=== PATIENT | female | born 1950 | race Two or more races ===

== ENCOUNTER 2025-04-30 15:40 | Inpatient (IN) | payer MEDICARE, MEDICAID ==
[~2025-04-30] VITALS: Ht 157.5 cm; Wt 62.2 kg
[2025-04-30] MEDS: NITROGLYCERIN 0.4 MG SL TAB SL ONE (15:45)
[2025-04-30] MEDS: ASPirin-EC 325mg tab PO ONE (15:45)
--- NOTE | 2025-04-30 15:58 | ED.PDOC ---
HPI Comments Initial Vitals BP: 145/71 HR: 61 RR: 17 O2 Sat: 95% Temp: 98F Past Medical history: DM, HTN, HLD, thyroid disease Past Surgical history: Pacemaker Medications: Eliquis, Losartan, Metoprolol, Metformin, Lipitor Social History: Denies smoking, ETOH, and drug use. Allergies: NKDA HPI: Poor Historian. REVIEW OF SYSTEMS: CONSTITUTIONAL: Denies acute: fever, diaphoresis, chills, generalized weakness. HEAD: Denies acute: headache, photophobia Eyes: Denies acute: Double vision, vision loss, eye pain, eye discharge. EARS: Denies acute: tinnitus, hearing loss, ear discharge, ear pain, THROAT: Denies acute: sore throat, swelling, difficulty swallowing , pain with swallowing, change in voice. NECK: Denies acute: neck pain, neck swelling, stiff neck. HEART: Denies acute : , palpitations, LUNGS: Denies acute: SOB, wheezing, cough, hemoptysis ABDOMEN: Denies acute: abdominal pain, Nausea, Vomiting, diarrhea, melena , hematemesis, hematochezia SKIN: Denies acute: rash, redness, lesions, itchiness. EXTREMITIES: Denies acute: calf pain, numbness, tingling, weakness, denies pain in extremity. Denies acute: Low back pain. Neuro: Denies acute: focal neurological deficit, motor or sensory focal neurological deficit, tremors, seizure like activity, confusion, dizziness, change in mental status, loss of bowel or bladder function, cauda equina like symptoms. : Denies acute: dysuria, hematuria, flank pain, increase in urinary frequency. PSYCH: Denies acute: hallucination, suicidal ideation, homicidal ideation. FEMALE: Denies acute: abnormal vaginal bleeding, foul odor, unusual discharge. PHYSICAL EXAM: General: ----[id number]----acute distress, awake and alert. Head: normocephalic, atraumatic. Neck: supple, trachea is midline, no swelling. Throat: Normal phonation. Eyes:, no erythema, no purulent discharge, no proptosis, no icterus. Heart: regular rate, regular rhythm, no significant murmur appreciated. Lungs: no apparent respiratory distress, Able to speak in full sentences. No wheezing, no rhonchi, no crackles. No stridors Clear to auscultation bilaterally. Abdomen: non tender to palpation, non distended, soft, no guarding, no rebound, + bowel sounds. Neuro: Awake, Alert, oriented to name, self, situation, follows commands GCS=15. Speech is normal. Skin: no petechia, no purpura, no cyanosis, non-pale, not jaundice. Lower extremities: --no - Pitting edema no deformity, no focal swelling, no calf TTP. Makes eye contact. moves all four extremities. Face: no apparent facial droop. Ambulating in the ED independently. ED COURSE: DISCLAIMER: This medical document was created using an electronic medical record system with voice recognition software and computerized dictation system. Although this document has been carefully reviewed, there might still be some phonetic and typographical errors. Occasional wrong-word or "sound-alike" substitutions may have occurred due to the inherent limitations of voice recognition software. These areas are purely typographical due to imperfections of the software programs and do not reflect any compromise in the patient's medical care. Please read the chart carefully and recognize, using context, where these substitutions have occurred. Chief Complaint: Chest Pain Time Seen by MD: 15:57 Reviewed Notes: Medications, Allergies Allergies: Coded Allergies: NO KNOWN ALLERGIES (Unverified , 04/30/25) Information Source: Patient Mode of Arrival: Ambulatory Was a procedure done? Was a procedure done?: No CP Differential Dx Differential Diagnosis: N/A Differential Diagnosis: Other (Ddx include but not limitied to gastritis, musculoskeletal pain, radiculopathy, atypical chest pain, dissection, aneurysm, ACS, unstable angina, hiatal hernia, GERD, anxiety, costochondritis, PE, pneumothroax, neoplasm, cardiac ischemia, drug abuse, anemia.) X-Ray, Labs, Meds, VS Vital Signs Date Time Temp Pulse Resp B/P (MAP) Pulse Ox O2 Delivery O2 Flow Rate FiO2 04/30/25 18:50 61 04/30/25 18:41 97.9 65 18 124/67 (86) 96 97.9 04/30/25 16:41 63 04/30/25 15:47 61 04/30/25 15:43 98.0 73 17 145/71 (95) 95 98.0 Lab Test 04/30/25 17:03 04/30/25 15:52 04/30/25 15:50 Range/Units Troponin I High Sensitivity 3 L 4 </=34 ng/L Urine Color Dark-yellow Yellow Urine Clarity Clear Clear Urine pH 5.5 5.0-9.0 Urine Specific [place] 1.023 1.001-1.035 Urine Protein Negative Negative Urine Ketones Negative Negative Urine Blood Negative Negative /uL Urine Nitrite Negative Negative Urine Bilirubin Negative Negative Urine Urobilinogen Normal Negative mg/dL Urine Leukocyte Esterase Trace Negative /uL Urine RBC 1 0 - 4 /hpf Urine Microscopic WBC 5 0-5 /HPF Urine Squamous Epithelial Cells Few <5 /hpf Urine Bacteria None seen None Seen /hpf Urine Glucose Normal Normal mg/dL White Blood Count 7.8 4.4-10.8 10^3/uL Red Blood Count 4.63 4.0-5.20 10^6/uL Hemoglobin 13.1 12.2-16.2 g/dL Hematocrit 38.8 36.0-46.0 % Mean Corpuscular Volume 83.8 80.0-100.0 fL Mean Corpuscular Hemoglobin 28.3 28.0-32.0 pg Mean Corpuscular Hemoglobin Concent 33.8 32.0-36.0 g/dL Red Cell Distribution Width 13.4 11.8-14.3 % Platelet Count 246 140-450 10^3/uL Mean Platelet Volume 7.9 6.9-10.8 fL Neutrophils (%) (Auto) 44.5 37.0-80.0 % Lymphocytes (%) (Auto) 46.5 10.0-50.0 % Monocytes (%) (Auto) 6.3 0.0-12.0 % Eosinophils (%) (Auto) 2.1 0.0-7.0 % Basophils (%) (Auto) 0.6 0.0-2.0 % Neutrophils # (Auto) 3.5 1.6-8.6 10 ^3/uL Lymphocytes # (Auto) 3.6 0.4-5.4 10 ^3/uL Monocytes # (Auto) 0.5 0-1.3 10 ^3/uL Eosinophils # (Auto) 0.2 0-0.8 10 ^3/uL Basophils # (Auto) 0 0-0.2 10 ^3/uL Nucleated Red Blood Cells 0.1 % Sodium Level 145 136-145 mmol/L Potassium Level 3.9 3.5-5.1 mmol/L Chloride Level 106 98-107 mmol/L Carbon Dioxide Level 31 20-31 mmol/L Anion Gap 8 5-15 Blood Urea Nitrogen 21 9-23 mg/dL Creatinine 0.85 0.550-1.02 mg/dL Glomerular Filtration Rate Calc 73 >90 mL/min BUN/Creatinine Ratio 24.7 H 10.0-20.0 Serum Glucose 162 H 74-106 mg/dL Calcium Level 10.6 H 8.7-10.4 mg/dL Total Bilirubin 0.5 0.2-1.0 mg/dL Aspartate Amino Transferase (AST) 33 <34 U/L Alanine Aminotransferase (ALT) 38 7-40 U/L Alkaline Phosphatase 102 46-116 U/L B-Type Natriuretic Peptide 83.68 0-100 pg/mL Total Protein 6.9 5.7-8.2 g/dL Albumin 4.3 3.2-4.8 g/dL [place] [id number] Ph: [phone] DIAGNOSTIC IMAGING Diagnostic Imaging Report : [id number] Signed PATIENT: MATTHEW JONES ACCT: [id number] UNIT: [id number] : 1950 LOC: ER ROOM / BED: / AGE / SEX: 74 / F ADM STATUS: REG ER SERVICE 1545 ORDERING PHYSICIAN: TARI COTTER DO PROCEDURE(s): CXRP - CHEST PORTABLE REASON: cp ORDER NUMBER(s): [id number], ACCESSION NUMBER(s): [id number] EXAM: XY CHEST PORTABLE HISTORY: cp COMPARISON: None TECHNIQUE: PA upright view of the chest was performed. FINDINGS: No pneumothorax, consolidative infiltrates, or pulmonary edema. The heart is not enlarged. There is a left chest pacemaker. There is oxyt-zs-thraihxj thoracic degenerative disc disease. There is slight thoracic dextroscoliosis. IMPRESSION: No acute intrathoracic process. ATED BY: JESSICA AGUILAR MD DICTATED DATE/TIME: 04/30/251622 SIGNED BY: JESSICA AGUILAR MD SIGNED DATE/TIME: 04/30/251622 CC: Time of 1ST Reevaluation: 16:57 Reevaluation 1ST: Unchanged Patient Education/Counseling: Diagnosis, Treatment Family Education/Counseling: Diagnosis, Treatment Comments EKGs T-wave inversion slight depressions in lead one and aVL. Patient presented with the above HPI.--cardia----workup was initiated. patient was found with the above mentioned diagnosis. the following medications were ordered: please refer to order lists of meds and tests obtained by myself Dr. Cotter. Patient ED course and VS have been stabilized. Patient has been reassessed in the ED and remained in a stable condition. Pertinent incidental findings were discussed with the patient and/or family. Patient/family voices understanding and is agreeable with plan. Patient has been observed in the ED adequate length of time to insure improvement/stability. Escalation of care considered: Consideration of escalation to observation or admission Patient was ADMITTED to the medicine team for further evaluation and treatment of their presentation. All the reports of any imaging studies that were ordered by myself were reviewed by myself. Departure 1 Departure Time of Disposition: 16:00 Impression: Primary Impression: Chest pain Additional Impression: Abnormal EKG Disposition: ADMITTED INPATIENT Admit to: [facility] Condition: Guarded Discharged With: Self Critical Care Note Critical Care Time?: No Heart Score Heart Score: Heart Score Response (Comments) Value History Highly Suspicious [address]-Deviation 2 Age >65 2 Risk Factors >3 or Hx ASHD 2 Troponin Normal limit 0 Total 8 I personally scribed for TARI COTTER DO ([email or web address]) on 04/30/25 at 15:58. Electronically submitted by Gagan Mcclellan ([email or web address]). I personally scribed for TARI COTTER DO ([email or web address]) on 04/30/25 at 16:48. Electronically submitted by Gagan Mcclellan ([email or web address]). I personally scribed for TARI COTTER DO ([email or web address]) on 04/30/25 at 17:10. Electronically submitted by Gagan Mcclellan ([email or web address]). TARI COTTER DO Apr 30, 2025 15:58
[2025-04-30 16:09] LABS: Basophils # (auto) 0 10 ^3/uL (0-0.2); Basophils % (auto) 0.6 % (0.0-2.0); Eosinophils # (auto) 0.2 10 ^3/uL (0-0.8); Eosinophils % (auto) 2.1 % (0.0-7.0); Hematocrit 38.8 % (36.0-46.0); Hemoglobin 13.1 g/dL (12.2-16.2); Lymphocytes # (auto) 3.6 10 ^3/uL (0.4-5.4); Lymphocytes % (auto) 46.5 % (10.0-50.0); Mean Corpuscular Hemoglobin 28.3 pg (28.0-32.0); Mean Corpuscular Hgb Conc. 33.8 g/dL (32.0-36.0); Mean Corpuscular Volume 83.8 fL (80.0-100.0); Monocytes # (auto) 0.5 10 ^3/uL (0-1.3); Monocytes % (auto) 6.3 % (0.0-12.0); Neutrophils # (auto) 3.5 10 ^3/uL (1.6-8.6); Neutrophils % (auto) 44.5 % (37.0-80.0); Nucleated Red Blood Cells % 0.1 %; Platelet Count (auto) 246 10^3/uL (140-450); Red Blood Cells 4.63 10^6/uL (4.0-5.20); Red Cell Distribution Width 13.4 % (11.8-14.3); White Blood Cell 7.8 10^3/uL (4.4-10.8)
[2025-04-30 16:20] LABS: Urine Bacteria None Seen /hpf (None Seen)
[2025-04-30 16:26] LABS: Alanine Aminotransferase 38 U/L (7-40); Albumin 4.3 g/dL (3.2-4.8); Alkaline Phosphatase 102 U/L (46-116); Anion Gap 8 (5-15); Aspartate Aminotransferase 33 U/L (<34); BUN/Creatinine Ratio 24.7 (10.0-20.0); Bilirubin, Total 0.5 mg/dL (0.2-1.0); Blood Urea Nitrogen 21 mg/dL (9-23); Calcium 10.6 mg/dL (8.7-10.4); Carbon Dioxide 31 mmol/L (20-31); Chloride 106 mmol/L (98-107); Glucose 162 mg/dL (74-106); Potassium 3.9 mmol/L (3.5-5.1); Sodium 145 mmol/L (136-145); Total Protein 6.9 g/dL (5.7-8.2)
--- NOTE | 2025-04-30 16:26 | DVH ---
EXAM: XY CHEST PORTABLE HISTORY: cp COMPARISON: None TECHNIQUE: PA upright view of the chest was performed. FINDINGS: No pneumothorax, consolidative infiltrates, or pulmonary edema. The heart is not enlarged. There is a left chest pacemaker. There is djwa-mi-jowzkuys thoracic degenerative disc disease. There is slight thoracic dextroscoliosis. IMPRESSION: No acute intrathoracic process.
[2025-04-30 16:34] LABS: Urine Blood Negative /uL (Negative); Urine Clarity Clear (Clear); Urine Color Dark-Yellow (Yellow); Urine Protein, UAD Negative (Negative); Urine Specific Gravity 1.023 (1.001-1.035); Urine Squamous Epithelial Cell FEW /hpf (<5); Urine Urobilinogen Normal (Negative); Urine WBC 5 /HPF (0-5); Urine pH 5.5 (5.0-9.0)
[2025-04-30] MEDS ORDERED: ONDANSETRON HCL 4 MG/2 ML VIAL IV PRN (19:00)
[2025-04-30] MEDS: SODIUM CHLORIDE 0.9% 1,000 ML IV SCH (19:00)
[2025-04-30] MEDS ORDERED: NITROGLYCERIN 0.4 MG SL TAB SL PRN (19:00)
[2025-04-30] MEDS ORDERED: MORPHINE SULFATE INJ 2 MG/ml SYRG IV PRN (19:00)
[2025-04-30] MEDS: PANTOPRAZOLE 40 MG/10 ML VIAL INJ IV ONE (19:00)
[2025-04-30] MEDS: PIPERACILLIN-TAZOB 3.375GM 100 ML IV ONE (19:00)
[2025-05-01] VITALS (9 sets, daily range): BP systolic 117–139; BP diastolic 70–84; PULSE 60–73; RESP 16–20; TEMP 96.8–98.1; O2SAT 93–97
[2025-05-01] MEDS: PIPERACILLIN-TAZOB 3.375GM 100 ML IV SCH (02:55)
[2025-05-01 05:57] LABS: Basophils # (auto) 0 10 ^3/uL (0-0.2); Basophils % (auto) 0.6 % (0.0-2.0); Eosinophils # (auto) 0.2 10 ^3/uL (0-0.8); Eosinophils % (auto) 2.2 % (0.0-7.0); Hematocrit 38.7 % (36.0-46.0); Lymphocytes # (auto) 3.5 10 ^3/uL (0.4-5.4); Lymphocytes % (auto) 44.3 % (10.0-50.0); Mean Corpuscular Hgb Conc. 33.7 g/dL (32.0-36.0); Monocytes # (auto) 0.6 10 ^3/uL (0-1.3); Monocytes % (auto) 8.3 % (0.0-12.0); Neutrophils # (auto) 3.5 10 ^3/uL (1.6-8.6); Neutrophils % (auto) 44.6 % (37.0-80.0); Nucleated Red Blood Cells % 0.2 %; Platelet Count (auto) 230 10^3/uL (140-450); Red Blood Cells 4.67 10^6/uL (4.0-5.20); White Blood Cell 7.8 10^3/uL (4.4-10.8)
[2025-05-01 06:25] LABS: Alanine Aminotransferase 34 U/L (7-40); Alkaline Phosphatase 84 U/L (46-116); Anion Gap 8 (5-15); BUN/Creatinine Ratio 20.6 (10.0-20.0); Blood Urea Nitrogen 14 mg/dL (9-23); Calcium 9.2 mg/dL (8.7-10.4); Carbon Dioxide 28 mmol/L (20-31); Chloride 105 mmol/L (98-107); Potassium 3.8 mmol/L (3.5-5.1); Sodium 141 mmol/L (136-145); Total Protein 6.5 g/dL (5.7-8.2)
[2025-05-01 06:26] LABS: Aspartate Aminotransferase 27 U/L (<34); Glucose 116 mg/dL (74-106)
[2025-05-01 06:27] LABS: Bilirubin, Total 0.7 mg/dL (0.2-1.0)
[2025-05-01] MEDS ORDERED: DEXTROSE (50%) 50ML SYRG IV PRN (08:00)
[2025-05-01 08:20] LABS: Amphetamine Screen, Urine Neg (NEGATIVE); Barbiturate Scree,Urine Neg (NEGATIVE); Benzodiazephine Screen, Urine Neg (NEGATIVE); Cannabinoid Screen, Urine Neg (NEGATIVE); Cocaine Screen, Urine Neg (NEGATIVE); Opiate Scree,Urine Neg (NEGATIVE); Phencyclidine Screen, Urine Neg (NEGATIVE)
[2025-05-01] MEDS: PANTOPRAZOLE 40 MG/10 ML VIAL INJ IV SCH (09:28)
[2025-05-01] MEDS: cefTRIAXone 1GM/50ML D5W 50 ML IV SCH (09:28)
[2025-05-01] MEDS ORDERED: ENOXAPARIN SOD 40 MG/0.4 ML SYRINGE SC SCH (10:00)
[2025-05-01] MEDS ORDERED: NICOTINE 21MG/24 HR TOPICAL PATCH TD SCH (10:00)
[2025-05-01] MEDS ORDERED: METF-370 PO (10:31)
[2025-05-01] MEDS ORDERED: LOSA-534 PO (10:31)
[2025-05-01] MEDS ORDERED: METO25TA5 PO (10:31)
[2025-05-01] MEDS ORDERED: APIX5TAB PO (10:31)
[2025-05-01] MEDS ORDERED: LEVO25TA6 PO (10:31)
[2025-05-01] MEDS ORDERED: ATOR40TA52 PO (10:31)
--- NOTE | 2025-05-01 11:16 | DVHPN2 ---
Subjective c/o lt sided chest pain Changes from previous H/P or p: No Changes Objective Vitals Vital Signs Date Time Temp Pulse Resp B/P (MAP) Pulse Ox O2 Delivery O2 Flow Rate FiO2 05/01/25 08:16 97.5 62 17 136/71 (92) 95 97.5 05/01/25 00:14 Room Air* 0 21 Intake/Output Intake and Output 05/01/25 07:00 Intake Total 0 ml Balance 0 ml Intake Oral 0 ml # Voids 1 General Appearance: Alert, Oriented X3, Cooperative, No acute distress Lungs: Clear to auscultation, Normal air movement Cardiovascular: Regular rate, Normal S1, Normal S2 Abdomen: Normal bowel sounds, Soft, No tenderness Musculoskeletal: Normal sensory function, Normal motor function Extremities: No edema Psych/Mental Status: Mental status NL, Mood NL Medications Current Medications Medications Dose Ordered Sig/Elyssa Route Start Time Stop Time Status Last Admin Dose Admin Ceftriaxone Sodium 50 ml @ 100 mls/hr DAILY@09 IV 05/01/25 08:03 05/01/25 09:28 100 MLS/HR Levothyroxine Sodium 25 mcg QAM@0600 PO 05/02/25 06:00 UNV Atorvastatin Calcium 40 mg HS PO 05/01/25 22:00 UNV Metoprolol Tartrate 25 mg BID PO 05/01/25 22:00 UNV Apixaban 5 mg BID PO 05/01/25 22:00 UNV Laboratory Results Laboratory Tests 05/01/25 04:53 Chemistry Test 04/30/25 15:50 05/01/25 04:53 Albumin 4.3 g/dL (3.2-4.8) 4.0 g/dL (3.2-4.8) Calcium Level 10.6 mg/dL (8.7-10.4) H 9.2 mg/dL (8.7-10.4) Total Protein 6.9 g/dL (5.7-8.2) 6.5 g/dL (5.7-8.2) Magnesium Level 2.0 mg/dL (1.6-2.6) Lipid panel Test 05/01/25 04:53 Cholesterol Level 139 mg/dL (< 200) HDL Cholesterol 34 mg/dL (40-59) L Triglycerides Level 156 mg/dL (< 150) H Cardiac Markers Test 04/30/25 15:50 B-Type Natriuretic Peptide 83.68 pg/mL (0-100) LFT Test 04/30/25 15:50 05/01/25 04:53 Alanine Aminotransferase (ALT) 38 U/L (7-40) 34 U/L (7-40) Alkaline Phosphatase 102 U/L (46-116) 84 U/L (46-116) Aspartate Amino Transferase (AST) 33 U/L (<34) 27 U/L (<34) Total Bilirubin 0.5 mg/dL (0.2-1.0) 0.7 mg/dL (0.2-1.0) HgA1c, TSH Test 05/01/25 04:53 Hemoglobin A1c 6.5 % A1C (<5.7) H Thyroid Stimulating Hormone (TSH) 3.82 uIU/mL (0.55-4.78) Urinalysis Test 04/30/25 15:52 Urine Color Dark-yellow (Yellow) Urine Clarity Clear (Clear) Urine pH 5.5 (5.0-9.0) Urine Specific [place] 1.023 (1.001-1.035) Urine Protein Negative (Negative) Urine Ketones Negative (Negative) Urine Blood Negative /uL (Negative) Urine Nitrite Negative (Negative) Urine Bilirubin Negative (Negative) Urine Urobilinogen Normal mg/dL (Negative) Urine Leukocyte Esterase Trace /uL (Negative) Urine RBC 1 /hpf (0 - 4) Urine Microscopic WBC 5 /HPF (0-5) Urine Squamous Epithelial Cells Few /hpf (<5) Urine Bacteria None seen /hpf (None Seen) Urine Glucose Normal mg/dL (Normal) Assessment/Plan Assessment/Plan left sided chest pain- clinically chest wall pain/given risk factors get cardiac opinion/echo pending paroxysmal atrail fibrillation rate control/antioagulation htn hypothyroidism dm well controlled ambulatory status Plan discussed with: Patient, Daughter My Orders Orders - STACY AYALA MD Procedure Category Date Status Time Levothyroxine Tablet PHA 05/01/25 Logged (Synthroid Tablet) 11:15 Levothyroxine Tablet PHA 05/02/25 Logged (Synthroid Tablet) 06:00 Atorvastatin (Lipitor) PHA 05/01/25 Logged 11:15 Atorvastatin (Lipitor) PHA 05/01/25 Logged 22:00 Metoprolol Tartrate PHA 05/01/25 Logged Tablet (Lopressor Ta 22:00 Apixaban (Eliquis) PHA 05/01/25 Logged 22:00 * Cardiology Consult CONS 05/01/25 Verified 11:11 Date of Service: May 01, 2025 Billing Provider: STACY AYALA MD Common Visit Codes: [id number] INP/OBS CARE(MOD) STACY AYALA MD May 01, 2025 11:16
[2025-05-01] MEDS ORDERED: ACCU-CHEK COMFORT CURVE STRIP VI SCH (11:30)
[2025-05-01] MEDS ORDERED: InsuLIN REG 1unit/0.01ml Soln (100units/ml) SC SCH (11:30)
[2025-05-01] MEDS: LEVOTHYROXINE SODIUM 25 MCG TAB PO ONE (13:00)
[2025-05-01] MEDS: ATORVASTATIN 20 MG TAB PO ONE (13:00)
--- NOTE | 2025-05-01 18:26 | DVHINCON2 ---
Date of service: May 01, 2025 Referring Physician Cristopher Reason for Consultation Chest pain History of Present Illness This is a 74 year old female with a PMH of DM, HTN, HLD, thyroid disease who presented to the ED with complaints of chest pain. Pain does not radiate. Denies any associated symptoms. EKGs shows T-wave inversion slight depressions in lead one and aVL. Chest x-ray showed NAD. CBC and CMP were unremarkable. Troponin negative x3. Patient was admitted to the hospital. I am asked to consult on this patient. Allergies: Coded Allergies: NO KNOWN ALLERGIES (Unverified , 04/30/25) Home Meds Reported Medications Losartan Potassium (Losartan Potassium) 50 Mg Tab, 50 MG PO DAILY for 30 Days, MG 05/01/25 Atorvastatin Calcium (ATORVASTATIN CALCIUM) 40 Mg Tab, 1 TAB PO QPM, #90 TAB 3 Refills 05/01/25 Metoprolol Tartrate (Metoprolol Tartrate) 25 Mg Tab, 25 MG PO BID for 30 Days, MG 05/01/25 Metformin Hydrochloride (Metformin Hcl) 500 Mg Tab, 500 MG PO IBID for 30 Days, MG 05/01/25 Levothyroxine Sodium (Levothyroxine Sodium) 25 Mcg Tab, 25 MCG PO QAM, MCG 05/01/25 Apixaban Base (ELIQUIS) 5 Mg Tab, 5 MG PO BID, TAB 05/01/25 Current Medications Current Medications Medications (Trade) Dose Ordered Sig/Elyssa Route PRN Reason Start Time Stop Time Status Last Admin Piperacillin Sod/ Tazobactam Sod 100 ml @ 25 mls/hr Q8H IV 05/01/25 04:00 05/01/25 11:06 DC Sodium Chloride 1,000 ml @ 120 mls/hr Q8H20M IV 04/30/25 19:00 05/01/25 11:06 DC 05/01/25 09:28 Ondansetron HCl (Zofran) 4 mg Q4HP PRN IV NAUSEA / VOMITING 04/30/25 19:00 05/01/25 11:06 DC Morphine Sulfate 2 mg Q4HPRN PRN IV SEVERE PAIN (7-10 PAIN SCALE) 04/30/25 19:00 05/01/25 11:06 DC Nitroglycerin (Ntrostat Sublingual) 0.4 mg Q5MINP PRN SL FOR CHEST PAIN 04/30/25:00 05/01/25 11:06 DC Pantoprazole Sodium (Protonix) 40 mg DAILY IV 05/01/25 10:00 05/01/25 11:06 DC 05/01/25 09:28 Nicotine (Nicoderm 21MG/ 24HR) 1 patch DAILY TD 05/01/25 10:00 05/01/25 11:06 DC Ceftriaxone Sodium 50 ml @ 100 mls/hr DAILY@09 IV 05/01/25 08:03 05/01/25 09:28 Diagnostic Test (Pha) (Accu-Chek Comfort Curve T) 1 strip ACHS 05/01/25 11:30 05/01/25 11:06 DC Insulin Human Regular (InsuLIN R) ACHS SC 05/01/25 11:30 05/01/25 11:06 DC Dextrose 50 ml UD PRN IV Blood Sugar LESS THAN 60 05/01/25 08:00 05/01/25 11:06 DC Enoxaparin Sodium (Lovenox) 40 mg DAILY SC 05/01/25 10:00 05/01/25 11:06 DC Levothyroxine Sodium (Synthroid Tablet) 25 mcg QAM@0600 PO 05/02/25 06:00 Atorvastatin Calcium (Lipitor) 40 mg HS PO 05/01/25 22:00 Metoprolol Tartrate (Lopressor Tablet) 25 mg BID PO 05/01/25 22:00 Apixaban (Eliquis) 5 mg BID PO 05/01/25 22:00 Review of Systems CONSTITUTIONAL: Denies acute: fever, diaphoresis, chills, generalized weakness. HEAD:Denies acute: headache, photophobia Eyes:Denies acute: Double vision, vision loss, eye pain, eye discharge. EARS: Denies acute: tinnitus, hearing loss, ear discharge, ear pain, THROAT: Denies acute: sore throat, swelling, difficulty swallowing , pain with swallowing, change in voice. NECK:Denies acute: neck pain, neck swelling, stiff neck. HEART:Denies acute : , palpitations, LUNGS:Denies acute: SOB, wheezing, cough, hemoptysis ABDOMEN:Denies acute: abdominal pain, Nausea, Vomiting, diarrhea, melena , hematemesis, hematochezia SKIN:Denies acute: rash, redness, lesions, itchiness. EXTREMITIES:Denies acute: calf pain, numbness, tingling, weakness, denies pain in extremity.Denies acute: Low back pain. Neuro:Denies acute: focal neurological deficit, motor or sensory focal neurological deficit, tremors, seizure like activity, confusion, dizziness, change in mental status, loss of bowel or bladder function, cauda equina like symptoms. : Denies acute: dysuria, hematuria, flank pain, increase in urinary frequency. PSYCH: Denies acute: hallucination, suicidal ideation, homicidal ideation. FEMALE: Denies acute: abnormal vaginal bleeding, foul odor, unusual discharge. Vital Signs Vital Signs Date Time Temp Pulse Resp B/P (MAP) Pulse Ox O2 Delivery O2 Flow Rate FiO2 05/01/25 13:00 97.7 61 18 129/77 (94) 96 97.7 05/01/25 08:00 Room Air* 0 21 Physical Exam GENERAL: Alert and oriented x 3. No acute distress. EYES: PERRL, EOMI. Anicteric. HENT: Moist mucous membranes. LUNGS: Clear to auscultation bilaterally. CARDIOVASCULAR: Regular rate and rhythm. ABDOMEN: Soft, non-tender and non-distended. EXTREMITIES: No edema. NEUROLOGIC: No focal neurological deficits. SKIN: Warm, dry. Labs/Diagnostic Data Labs Test 05/01/25 04:53 04/30/25 19:00 04/30/25 15:52 04/30/25 15:50 Range/Units White Blood Count 7.8 4.4-10.8 10^3/uL Red Blood Count 4.67 4.0-5.20 10^6/uL Hemoglobin 13.0 12.2-16.2 g/dL Hematocrit 38.7 36.0-46.0 % Mean Corpuscular Volume 83.0 80.0-100.0 fL Mean Corpuscular Hemoglobin 28.0 28.0-32.0 pg Mean Corpuscular Hemoglobin Concent 33.7 32.0-36.0 g/dL Red Cell Distribution Width 13.0 11.8-14.3 % Platelet Count 230 140-450 10^3/uL Mean Platelet Volume 8.2 6.9-10.8 fL Neutrophils (%) (Auto) 44.6 37.0-80.0 % Lymphocytes (%) (Auto) 44.3 10.0-50.0 % Monocytes (%) (Auto) 8.3 0.0-12.0 % Eosinophils (%) (Auto) 2.2 0.0-7.0 % Basophils (%) (Auto) 0.6 0.0-2.0 % Neutrophils # (Auto) 3.5 1.6-8.6 10 ^3/uL Lymphocytes # (Auto) 3.5 0.4-5.4 10 ^3/uL Monocytes # (Auto) 0.6 0-1.3 10 ^3/uL Eosinophils # (Auto) 0.2 0-0.8 10 ^3/uL Basophils # (Auto) 0 0-0.2 10 ^3/uL Nucleated Red Blood Cells 0.2 % Sodium Level 141 136-145 mmol/L Potassium Level 3.8 3.5-5.1 mmol/L Chloride Level 105 98-107 mmol/L Carbon Dioxide Level 28 20-31 mmol/L Anion Gap 8 5-15 Blood Urea Nitrogen 14 9-23 mg/dL Creatinine 0.68 0.550-1.02 mg/dL Glomerular Filtration Rate Calc 92 >90 mL/min BUN/Creatinine Ratio 20.6 H 10.0-20.0 Serum Glucose 116 H 74-106 mg/dL Hemoglobin A1c 6.5 H <5.7 % A1C Calcium Level 9.2 8.7-10.4 mg/dL Magnesium Level 2.0 1.6-2.6 mg/dL Total Bilirubin 0.7 0.2-1.0 mg/dL Aspartate Amino Transferase (AST) 27 <34 U/L Alanine Aminotransferase (ALT) 34 7-40 U/L Alkaline Phosphatase 84 46-116 U/L Total Protein 6.5 5.7-8.2 g/dL Albumin 4.0 3.2-4.8 g/dL Triglycerides Level 156 H < 150 mg/dL Cholesterol Level 139 < 200 mg/dL LDL Cholesterol 86 < 100 mg/dL HDL Cholesterol 34 L 40-59 mg/dL Thyroid Stimulating Hormone (TSH) 3.82 0.55-4.78 uIU/mL Free Thyroxine (T4) Calculated 0.94 0.89-1.76 ng/dL Troponin I High Sensitivity 4 </=34 ng/L Urine Color Dark-yellow Yellow Urine Clarity Clear Clear Urine pH 5.5 5.0-9.0 Urine Specific [place] 1.023 1.001-1.035 Urine Protein Negative Negative Urine Ketones Negative Negative Urine Blood Negative Negative /uL Urine Nitrite Negative Negative Urine Bilirubin Negative Negative Urine Urobilinogen Normal Negative mg/dL Urine Leukocyte Esterase Trace Negative /uL Urine RBC 1 0 - 4 /hpf Urine Microscopic WBC 5 0-5 /HPF Urine Squamous Epithelial Cells Few <5 /hpf Urine Bacteria None seen None Seen /hpf Urine Glucose Normal Normal mg/dL Urine Opiates Screen Neg NEGATIVE Urine Fentanyl Screen Neg NEGATIVE Urine Barbiturates Screen Neg NEGATIVE Urine Phencyclidine Screen Neg NEGATIVE Urine Amphetamines Screen Neg NEGATIVE Urine Benzodiazepines Screen Neg NEGATIVE Urine Cocaine Screen Neg NEGATIVE Urine Cannabinoids Screen Neg NEGATIVE B-Type Natriuretic Peptide 83.68 0-100 pg/mL Assessment Left sided chest pain. Paroxysmal atrial fibrillation. HTN. Hypothyroidism. DM. Plan/Recommendation I agree with your ongoing assessment and care of plan. Echocardiogram. Eliquis. Lipitor, Metoprolol. IV antibiotics as ordered. Additional plan as per the hospital course. A total of 45 minutes was spent reviewing the patient record, examining the patient, making a diagnostic and therapeutic plan, discussing this plan with medical personnel, following up on diagnostic studies and following the patient for clinical stability excluding any and all procedures. At least 50% of this time was spent in direct, [id number] contact. Plan discussed with: Patient BOB العراقي MD May 01, 2025 17:29
--- NOTE | 2025-05-01 19:15 | ECG ---
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
--- NOTE | 2025-05-01 19:31 | DVHSR ---
APPROVED REPORT EXAM: Two-dimensional and M-mode echocardiogram with Doppler and color Doppler. Blood Pressure: 136/71 mmHg INDICATION Chest Pain Surgery/Intervention Pacemaker: RISK FACTORS Height: 5'2, Weight: 160 DIMENSIONS LVDd4.2 (3.8-5.7cm)LA (2D)4.0 (1.9-4.0cm)Aortic Root3.6 (2.0-3.7cm) LVDs2.7 (2.5-4.0cm)LA (MM) (1.9-4.0cm)Aortic Cusp Exc1.8 (1.5-2.0cm) EF (%) 65.0 (55-70%)Rt. Atrium3.3 (1.9-4.0cm)Asc. Aorta cm IVSd1.4 (0.7-1.1cm)RV (D)3.7 (1.8-2.4cm) PWd1.3 (0.7-1.1cm) Mitral Valve MitralMitral Stenosis E wave0.84m/sMV Mean GR.mmHg A wave1.08m/sMV Peak GR.85mmHg E/A ratio0.82D MVAcm2 DECEL [id number] 1/2 Timems Aortic Valve Aortic ValveAortic Stenosis V11.61m/Cira Mean GR.6mmHg V21.52m/Cira Peak GR.9mmHg LVOT Diameter2.0 (1.8-2.4cm)Doppler AVA3.33cm2 Pulmonic Valve V20.98m/s Tricuspid Valve TR Velocity2.49m/s [id number] Other Information Quality : Technically LimitedRhythm : Technically limited study due to body habitus.patient position. Conclusion LVEF >70%, mild LVH RV function normal, device lead noted Severe poserior annular calcification, there is 1.8cmx0.4cm echogenic structure near posterior annulu s, can not rule out vegetation. clinical correlation and ELICIA if indicated recommended
[2025-05-01] MEDS: METOPROLOL TARTRATE 25 MG TAB PO SCH (21:03)
[2025-05-01] MEDS: ATORVASTATIN 20 MG TAB PO SCH (21:04)
[2025-05-01] MEDS: APIXABAN 5 MG TAB PO SCH (21:05)
[2025-05-02] VITALS (8 sets, daily range): BP systolic 104–134; BP diastolic 61–75; PULSE 60–76; RESP 17–20; TEMP 97.6–98; O2SAT 93–97
[2025-05-02] MEDS: LEVOTHYROXINE SODIUM 25 MCG TAB PO SCH (05:16)
--- NOTE | 2025-05-02 06:33 | ECG ---
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
--- NOTE | 2025-05-02 12:21 | DVHPN2 ---
Subjective c/o lt sided chest wall pain/ Changes from previous H/P or p: No Changes Objective Vitals Vital Signs Date Time Temp Pulse Resp B/P (MAP) Pulse Ox O2 Delivery O2 Flow Rate FiO2 05/02/25 09:52 61 134/75 05/02/25 09:00 97.6 17 93 97.6 05/02/25 08:00 Room Air* 0 21 Intake/Output Intake and Output 05/02/25 07:00 Intake Total 828 ml Balance 828 ml Intake Oral 778 ml IV Total 50 ml # Voids 3 General Appearance: Alert, Oriented X3, Cooperative, No acute distress Lungs: Clear to auscultation, Normal air movement Cardiovascular: Regular rate, Normal S1, Normal S2 Abdomen: Normal bowel sounds, Soft, No tenderness Musculoskeletal: Normal sensory function, Normal motor function Extremities: No edema Psych/Mental Status: Mental status NL, Mood NL Medications Current Medications Medications Dose Ordered Sig/Elyssa Route Start Time Stop Time Status Last Admin Dose Admin Levothyroxine Sodium 25 mcg QAM@0600 PO 05/02/25 06:00 05/02/25 05:16 25 MCG Atorvastatin Calcium 40 mg HS PO 05/01/25 22:00 Metoprolol Tartrate 25 mg BID PO 05/01/25 22:00 05/02/25 09:52 25 MG Apixaban 5 mg BID PO 05/01/25 22:00 05/02/25 09:52 5 MG Laboratory Results Laboratory Tests 05/01/25 04:53 Urinalysis Test 04/30/25 15:52 Urine Color Dark-yellow (Yellow) Urine Clarity Clear (Clear) Urine pH 5.5 (5.0-9.0) Urine Specific [place] 1.023 (1.001-1.035) Urine Protein Negative (Negative) Urine Ketones Negative (Negative) Urine Blood Negative /uL (Negative) Urine Nitrite Negative (Negative) Urine Bilirubin Negative (Negative) Urine Urobilinogen Normal mg/dL (Negative) Urine Leukocyte Esterase Trace /uL (Negative) Urine RBC 1 /hpf (0 - 4) Urine Microscopic WBC 5 /HPF (0-5) Urine Squamous Epithelial Cells Few /hpf (<5) Urine Bacteria None seen /hpf (None Seen) Urine Glucose Normal mg/dL (Normal) Labs and/or images reviewed: Labs reviewed by me Assessment/Plan Assessment/Plan left sided chest pain- clinically chest wall pain/given risk factors get cardiac opinion/echo pending paroxysmal atrail fibrillation rate control/antioagulation echo shows ? density- await cardiology opinion on this - on eliquis//AFEBRILE clinically no signs of any infection/no recent dental procedures or joint injections/ua is clear/cxr is normal- follow clinical signs/symptoms htn hypothyroidism dm well controlled ambulatory status Plan discussed with: Patient, Daughter Date of Service: May 02, 2025 Billing Provider: STACY AYALA MD Common Visit Codes: [id number] INP/OBS CARE(MOD) STACY AYALA MD May 02, 2025 12:21
[2025-05-02] MEDS: cefTRIAXone 1GM/50ML D5W 50 ML IV ONE (13:30)
--- NOTE | 2025-05-02 17:38 | DVHPN2 ---
Consult Progress Note Subjective Patient reports: No new complaints Objective vital signs Vital Sign Date Time Temp Pulse Resp B/P (MAP) Pulse Ox O2 Delivery O2 Flow Rate FiO2 05/02/25 17:00 97.9 65 17 115/68 (84) 96 97.9 05/02/25 08:00 Room Air* 0 21 Total Intake and Output 05/01/25 05/01/25 05/02/25 15:00 23:00 07:00 Intake Total 168 ml 460 ml 200 ml Balance 168 ml 460 ml 200 ml medications Current Medications Medications Dose Ordered Sig/Elyssa Route Start Time Stop Time Status Last Admin Dose Admin Levothyroxine Sodium 25 mcg QAM@0600 PO 05/02/25 06:00 05/02/25 05:16 25 MCG Atorvastatin Calcium 40 mg HS PO 05/01/25 22:00 Metoprolol Tartrate 25 mg BID PO 05/01/25 22:00 05/02/25 09:52 25 MG Apixaban 5 mg BID PO 05/01/25 22:00 Hold 05/02/25 09:52 5 MG Ceftriaxone Sodium 50 ml @ 100 mls/hr DAILY@09 IV 05/03/25 09:00 Examination: GENERAL:Normal, CVS:Normal laboratory and microbiology Laboratory Tests 05/01/25 04:53 Test 05/01/25 04:53 Range/Units Serum Glucose 116 H 74-106 mg/dL Problem List/Assessment/Plan Problem List/Assessment/Plan Chest pain, to rule out ACS * Low suspicious for acute coronary syndrome based on negative troponins and nonspecific ECG findings. Awaiting left heart catheterization on 05/04/2025 for further evaluation * Tentative scheduled for left heart catheterization on 05/04/[address] Jonathan العراقي. Discussed plan with patient and daughter, and in agreement with the procedure Echogenic cardiac structure * Suspicious for annular calcification, ?Vegetation * Empiric antibiotics ceftriaxone * Dr. العراقي will review echocardiogram Hypertension * Continue with current antihypertensive medication Diabetes type 2 * Continue to monitor Hyperlipidemia * Continue with statins Plan discussed with: Patient, Daughter Dietary Evaluation Review Recommendations by RD: Dietary education by RD Comments: 1) Encourage optimal PO intake 2) Refer to outpatient RD/CDCES for weight management 3) Follow-up with cardiology 4) Continue to monitor I&O, labs, and skin integrity Expected Outcomes/Goals: 1) appetite and labs to improve 2) f/u in 3-5 days Date of Service: May 02, 2025 Billing Provider: BOB العراقي MD Common Visit Codes: CONSULT ONLY GIANCARLO WONG DIRECTOR OF ACADEMIC May 02, 2025 17:38
[2025-05-02 19:21] LABS: INR 0.98 (0.9-1.15); Partial Thromboplastin Time 26.5 SEC (24.5-34.5); Prothrombin Time 10.4 sec (9.3-11.8)
--- NOTE | 2025-05-02 23:20 | DVHPN2 ---
Progress Note - Dictate Date Seen: May 02, 2025 Medical Necessity Reason Pt with a Central, PICC or Fol: No Subjective Patient was seen and evaluated in follow up. No new complaints. Patient's daughter at bedside. Echocardiogram showed EF >70%. Patient is tentatively scheduled for left heart catheterization on 05/04/2025. Telemetry reviewed. vital signs Vital Sign Date Time Temp Pulse Resp B/P (MAP) Pulse Ox O2 Delivery O2 Flow Rate FiO2 05/02/25 13:00 97.6 65 18 118/74 (89) 94 97.6 05/02/25 08:00 Room Air* 0 21 Total Intake and Output 05/01/25 05/01/25 05/02/25 15:00 23:00 07:00 Intake Total 168 ml 460 ml 200 ml Balance 168 ml 460 ml 200 ml medications Current Medications Medications Dose Ordered Sig/Elyssa Route Start Time Stop Time Status Last Admin Dose Admin Levothyroxine Sodium 25 mcg QAM@0600 PO 05/02/25 06:00 05/02/25 05:16 25 MCG Atorvastatin Calcium 40 mg HS PO 05/01/25 22:00 Metoprolol Tartrate 25 mg BID PO 05/01/25 22:00 05/02/25 09:52 25 MG Apixaban 5 mg BID PO 05/01/25 22:00 05/02/25 09:52 5 MG Ceftriaxone Sodium 50 ml @ 100 mls/hr DAILY@09 IV 05/03/25 09:00 objective GENERAL: Alert and oriented x 3. No acute distress. EYES: PERRL, EOMI. Anicteric. HENT: Moist mucous membranes. LUNGS: Clear to auscultation bilaterally. CARDIOVASCULAR: Regular rate and rhythm. ABDOMEN: Soft, non-tender and non-distended. EXTREMITIES: No edema. NEUROLOGIC: No focal neurological deficits. SKIN: Warm, dry. laboratory and microbiology Laboratory Tests 05/01/25 04:53 Test 05/01/25 04:53 Range/Units Serum Glucose 116 H 74-106 mg/dL Problem List Chest pain, to rule out ACS. Echogenic cardiac structure. Hypertension. Diabetes type 2. Hyperlipidemia. Assessment/Plan Continued all current supportive medical care. Patient has been seen by Agata Matamoros NP on my behalf, her and I discussed the plan with the patient. Low suspicious for acute coronary syndrome based on negative troponins and nonspecific ECG findings. Tentatively scheduled for left heart catheterization on 05/04/2025 with me. Discussed plan with patient and daughter, and in agreement with the procedure. Suspicious for annular calcification, ?Vegetation. Empiric antibiotics ceftriaxone. Continue with current antihypertensive medication. Continue with statins. Additional plan as per the hospital course. Plan discussed with: Patient BOB العراقي MD May 02, 2025 15:24
[2025-05-03] VITALS (11 sets, daily range): BP systolic 97–125; BP diastolic 60–84; PULSE 63–74; RESP 17–20; TEMP 97–97.8; O2SAT 94–97
[2025-05-03] MEDS: cefTRIAXone 1GM/50ML D5W 50 ML IV SCH (09:40)
--- NOTE | 2025-05-03 10:29 | DVHPN2 ---
Consult Progress Note Subjective Patient reports: No new complaints Review of Systems: HEENT:Normal Objective vital signs Vital Sign Date Time Temp Pulse Resp B/P (MAP) Pulse Ox O2 Delivery O2 Flow Rate FiO2 05/03/25 09:40 69 124/79 05/03/25 09:00 97.0 20 97 97.0 05/02/25 20:00 Room Air* 0 21 Total Intake and Output 05/02/25 05/02/25 05/03/25 15:00 23:00 07:00 Intake Total 460 ml 100 ml Balance 460 ml 100 ml medications Current Medications Medications Dose Ordered Sig/Elyssa Route Start Time Stop Time Status Last Admin Dose Admin Levothyroxine Sodium 25 mcg QAM@0600 PO 05/02/25 06:00 05/03/25 05:17 25 MCG Atorvastatin Calcium 40 mg HS PO 05/01/25 22:00 05/02/25 21:14 40 MG Metoprolol Tartrate 25 mg BID PO 05/01/25 22:00 05/03/25 09:40 25 MG Apixaban 5 mg BID PO 05/01/25 22:00 Hold 05/02/25 09:52 5 MG Ceftriaxone Sodium 50 ml @ 100 mls/hr DAILY@09 IV 05/03/25 09:00 05/03/25 09:40 100 MLS/HR Examination: GENERAL:Normal, LUNGS:Normal, CVS:Normal laboratory and microbiology Laboratory Tests 05/01/25 04:53 Test 05/01/25 04:53 Range/Units Serum Glucose 116 H 74-106 mg/dL Problem List/Assessment/Plan Problem List/Assessment/Plan Chest pain, to rule out ACS * Low suspicious for acute coronary syndrome based on negative troponins and nonspecific ECG findings. Awaiting left heart catheterization on 05/04/2025 for further evaluation * Tentative scheduled for left heart catheterization on 05/04/[address] Jonathan العراقي. Discussed plan with patient and daughter, and in agreement with the procedure Echogenic cardiac structure * Suspicious for annular calcification, ?Vegetation * Empiric antibiotics ceftriaxone * Dr. العراقي will review echocardiogram Hypertension * Continue with current antihypertensive medication Diabetes type 2 * Continue to monitor Hyperlipidemia * Continue with statins Plan discussed with: Patient Dietary Evaluation Review Recommendations by RD: Dietary education by RD Comments: 1) Encourage optimal PO intake 2) Refer to outpatient RD/CDCES for weight management 3) Follow-up with cardiology 4) Continue to monitor I&O, labs, and skin integrity Expected Outcomes/Goals: 1) appetite and labs to improve 2) f/u in 3-5 days Date of Service: May 03, 2025 Billing Provider: BOB العراقي MD Common Visit Codes: CONSULT ONLY Consultation Codes: [id number] CONSULT <45MIN GIANCARLO WONG LOOP CUTTER May 03, 2025 10:29
--- NOTE | 2025-05-03 10:32 | DVHPN2 ---
Subjective c/o episodic disomfort on swallowing happened once/no weight loss/ Changes from previous H/P or p: No Changes Objective Vitals Vital Signs Date Time Temp Pulse Resp B/P (MAP) Pulse Ox O2 Delivery O2 Flow Rate FiO2 05/03/25 09:40 69 124/79 05/03/25 09:00 97.0 20 97 97.0 05/02/25 20:00 Room Air* 0 21 Intake/Output Intake and Output 05/03/25 07:00 Intake Total 560 ml Balance 560 ml Intake Oral 560 ml # Voids 6 General Appearance: Alert, Oriented X3, Cooperative, No acute distress Lungs: Clear to auscultation, Normal air movement Cardiovascular: Regular rate, Normal S1, Normal S2 Abdomen: Normal bowel sounds, Soft, No tenderness Musculoskeletal: Normal sensory function, Normal motor function Extremities: No edema Psych/Mental Status: Mental status NL, Mood NL Medications Current Medications Medications Dose Ordered Sig/Elyssa Route Start Time Stop Time Status Last Admin Dose Admin Levothyroxine Sodium 25 mcg QAM@0600 PO 05/02/25 06:00 05/03/25 05:17 25 MCG Atorvastatin Calcium 40 mg HS PO 05/01/25 22:00 05/02/25 21:14 40 MG Metoprolol Tartrate 25 mg BID PO 05/01/25 22:00 05/03/25 09:40 25 MG Apixaban 5 mg BID PO 05/01/25 22:00 Hold 05/02/25 09:52 5 MG Ceftriaxone Sodium 50 ml @ 100 mls/hr DAILY@09 IV 05/03/25 09:00 05/03/25 09:40 100 MLS/HR Laboratory Results Laboratory Tests 05/01/25 04:53 Coagulation Test 05/02/25 18:43 Prothrombin Time 10.4 sec (9.3-11.8) Prothrombin Time INR 0.98 (0.9-1.15) Activated Partial Thromboplast Time 26.5 SEC (24.5-34.5) Urinalysis Test 04/30/25 15:52 Urine Color Dark-yellow (Yellow) Urine Clarity Clear (Clear) Urine pH 5.5 (5.0-9.0) Urine Specific [place] 1.023 (1.001-1.035) Urine Protein Negative (Negative) Urine Ketones Negative (Negative) Urine Blood Negative /uL (Negative) Urine Nitrite Negative (Negative) Urine Bilirubin Negative (Negative) Urine Urobilinogen Normal mg/dL (Negative) Urine Leukocyte Esterase Trace /uL (Negative) Urine RBC 1 /hpf (0 - 4) Urine Microscopic WBC 5 /HPF (0-5) Urine Squamous Epithelial Cells Few /hpf (<5) Urine Bacteria None seen /hpf (None Seen) Urine Glucose Normal mg/dL (Normal) Labs and/or images reviewed: Labs reviewed by me, Image(s) reviewed by me Assessment/Plan Assessment/Plan left sided chest pain- clinically chest wall pain/given risk factors get cardiac opinion/echo reviwed/for angio on sunday per cardiology and they are debatimg on carmen paroxysmal atrail fibrillation rate control/anticoagulation echo shows ? density- await cardiology opinion on this - on eliquis//AFEBRILE clinically no signs of any infection/no recent dental procedures or joint injections/ua is clear/cxr is normal- follow clinical signs/symptoms- if no input/clerance from /his inpatient services director on this PLEASE DO REQUEST SECOND OPINION ON THIS BECAUSE EVEN IF NOT VEGETATION AND THROMBUS FROM ATRIAL FIBRILLATION QUESTIONS EFFICACY/COMPLINACE OF CURRENT ANTICOAGULANT htn hypothyroidism dm well controlled ambulatory status Plan discussed with: Patient, Other My Orders Orders - STACY AYALA MD Procedure Category Date Status Time Blood Culture JOSE ENRIQUE 05/02/25 In Process 12:17 Ceftriaxone 1gm/50ml PHA 05/03/25 In Process D5w (Rocephin) 09:00 * Cardiology Consult CONS 05/02/25 Transmitted 12:17 Date of Service: May 03, 2025 Billing Provider: STACY AYALA MD Common Visit Codes: [id number] INP/OBS CARE(HIGH) STACY AYALA MD May 03, 2025 10:32
--- NOTE | 2025-05-03 23:23 | DVHPN2 ---
Consult Progress Note Subjective Patient reports: No new complaints Review of Systems: HEENT:Normal Other Systems: Patient was seen and evluated in follow up. Patient is complaining of episodic discomfort while swallowing, only happned once. Prelim blood cultures are negative. Telemetry reviewed. Objective vital signs Vital Sign Date Time Temp Pulse Resp B/P (MAP) Pulse Ox O2 Delivery O2 Flow Rate FiO2 05/03/25 09:40 69 124/79 05/03/25 09:00 97.0 20 97 97.0 05/03/25 08:00 Room Air* 0 21 Total Intake and Output 05/02/25 05/02/25 05/03/25 15:00 23:00 07:00 Intake Total 460 ml 100 ml Balance 460 ml 100 ml medications Current Medications Medications Dose Ordered Sig/Elyssa Route Start Time Stop Time Status Last Admin Dose Admin Levothyroxine Sodium 25 mcg QAM@0600 PO 05/02/25 06:00 05/03/25 05:17 25 MCG Atorvastatin Calcium 40 mg HS PO 05/01/25 22:00 05/02/25 21:14 40 MG Metoprolol Tartrate 25 mg BID PO 05/01/25 22:00 05/03/25 09:40 25 MG Apixaban 5 mg BID PO 05/01/25 22:00 Hold 05/02/25 09:52 5 MG Ceftriaxone Sodium 50 ml @ 100 mls/hr DAILY@09 IV 05/03/25 09:00 05/03/25 09:40 100 MLS/HR Examination: GENERAL:Normal, HEENT:Normal, NECK:Normal, LUNGS:Normal, CVS:Normal, ABDOMEN:Normal, MSK:Normal laboratory and microbiology Laboratory Tests 05/01/25 04:53 Test 05/01/25 04:53 Range/Units Serum Glucose 116 H 74-106 mg/dL Problem List/Assessment/Plan Problem List/Assessment/Plan Problem List Chest pain, to rule out ACS. Echogenic cardiac structure. Hypertension. Diabetes type 2. Hyperlipidemia. Assessment/Plan Continued all current supportive medical care. Patient has been seen by Agata Matamoros NP on my behalf, her and I discussed the plan with the patient. Low suspicious for acute coronary syndrome based on negative troponins and nonspecific ECG findings. Awaiting left heart catheterization on 05/04/2025 for further evaluation. Tentative scheduled for left heart catheterization on 05/04/2025 with me. Discussed plan with patient and daughter, and in agreement with the procedure. Suspicious for annular calcification, ?Vegetation. Empiric antibiotics ceftriaxone. I will review echocardiogram . Continue with current antihypertensive medication. Continue with statins. Additional plan as per the hospital course. Plan discussed with: Patient Dietary Evaluation Review Recommendations by RD: Dietary education by RD Comments: 1) Encourage optimal PO intake 2) Refer to outpatient RD/CDCES for weight management 3) Follow-up with cardiology 4) Continue to monitor I&O, labs, and skin integrity Expected Outcomes/Goals: 1) appetite and labs to improve 2) f/u in 3-5 days Date of Service: May 03, 2025 Billing Provider: BOB العراقي MD Cardiology Common Codes: [id number] INP/OBS CARE (High) Cardiology Consultation Codes: [id number] CONSULT <45MIN BOB العراقي MD May 03, 2025 12:55
[2025-05-04] VITALS (9 sets, daily range): BP systolic 113–137; BP diastolic 58–93; PULSE 19–68; RESP 12–18; TEMP 97–97.7; O2SAT 92–97
[2025-05-04 05:29] LABS: Basophils # (auto) 0 10 ^3/uL (0-0.2); Basophils % (auto) 0.5 % (0.0-2.0); Eosinophils # (auto) 0.2 10 ^3/uL (0-0.8); Eosinophils % (auto) 2.3 % (0.0-7.0); Hematocrit 39.8 % (36.0-46.0); Hemoglobin 13.4 g/dL (12.2-16.2); Lymphocytes # (auto) 3.6 10 ^3/uL (0.4-5.4); Lymphocytes % (auto) 48.9 % (10.0-50.0); Mean Corpuscular Hemoglobin 28.1 pg (28.0-32.0); Mean Corpuscular Hgb Conc. 33.8 g/dL (32.0-36.0); Mean Corpuscular Volume 83.3 fL (80.0-100.0); Monocytes # (auto) 0.5 10 ^3/uL (0-1.3); Monocytes % (auto) 6.9 % (0.0-12.0); Neutrophils # (auto) 3.1 10 ^3/uL (1.6-8.6); Neutrophils % (auto) 41.4 % (37.0-80.0); Nucleated Red Blood Cells % 0.1 %; Platelet Count (auto) 248 10^3/uL (140-450); Red Blood Cells 4.77 10^6/uL (4.0-5.20); Red Cell Distribution Width 13.3 % (11.8-14.3); White Blood Cell 7.5 10^3/uL (4.4-10.8)
[2025-05-04 05:49] LABS: Alanine Aminotransferase 34 U/L (7-40); Albumin 4.1 g/dL (3.2-4.8); Alkaline Phosphatase 86 U/L (46-116); Anion Gap 9 (5-15); Aspartate Aminotransferase 26 U/L (<34); BUN/Creatinine Ratio 21.3 (10.0-20.0); Bilirubin, Total 0.7 mg/dL (0.2-1.0); Blood Urea Nitrogen 16 mg/dL (9-23); Calcium 9.3 mg/dL (8.7-10.4); Carbon Dioxide 27 mmol/L (20-31); Chloride 106 mmol/L (98-107); Glucose 127 mg/dL (74-106); Potassium 4.2 mmol/L (3.5-5.1); Sodium 142 mmol/L (136-145); Total Protein 6.9 g/dL (5.7-8.2)
[2025-05-04] MEDS: IODIXANOL 320MG/ML 100ML BTL IV ONE ×2 (06:23→06:53)
[2025-05-04] MEDS: HEPARIN IN NS 1000Units/500mL 1,500 ML ONE (06:23)
[2025-05-04] MEDS: fentaNYL CITRATE 100 MCG/2 ML VL ONE (06:51)
[2025-05-04] MEDS: MIDAZOLAM HCL 2MG/2ML 2ml VIAL (1mg/ml) ONE (06:52)
[2025-05-04] MEDS: ANGIOMAX 250 MG VIAL IV ONE (06:53)
[2025-05-04] MEDS: SODIUM CHL 0.9% 0 ML ONE (06:53)
[2025-05-04] MEDS: VERAPAMIL 2.5MG/ML INJ 2ML VIAL IV ONE (06:53)
[2025-05-04] MEDS: LIDOCAINE 2%HCL (LOCAL ANESTH.) INJ 20ML MDV ONE (06:55)
[2025-05-04] MEDS: HEPARIN SODIUM (PORCINE) 5000 UNITS/ML 1ML VIAL ONE (07:33)
--- NOTE | 2025-05-04 08:48 | DVHOP ---
DATE OF SURGERY: 05/04/2025 TECHNIQUE PERFORMED: * Ultrasound of the right radial artery. * Management of conscious sedation. * Insertion of a 6-[place] arterial line in the right radial artery. * Left heart cath. * Left ventriculogram. * [place] selective left and right coronary artery angiography. * Ascending aortogram. COMPLICATIONS: None. ASSISTANTS: Assisted by our staff: Gagan Leal, David, and Melinda. INDICATIONS: The patient has underlying classical acute coronary syndrome, came to the Emergency Room. The procedure risks and benefits all have been explained to the patient and understood and accepts these very well. DESCRIPTION OF PROCEDURE: The patient's right radial area thoroughly cleaned with soap and Betadine. Lidocaine was given. Ultrasound was done. The artery was punctured. A 6-[place] arterial line was placed in a standard manner. The patient was given 100 mcg of nitroglycerin, 2.5 mg of verapamil, 2000 units of the heparin and subsequently, now we have put a TIG, a 5-[place] catheter was passed and subsequently, we have used a Glidewire to get into the ascending aorta. With the help of the similar catheter, able to do a right groin angiography. With the help of similar catheter, also able to do the left groin angiography. Subsequently, with the help of the pigtail catheter, a complete left side cath also has been done. A left ventriculogram was done in the right anterior oblique view, a total of 10 mL of dye. With the help of pull-through technique, aortic pressure was also performed and we have also done the ascending aortogram. Procedure was completed in a standard manner. At the end of the procedure, we also did a TR band. There were no complications. The patient did very well. IMPRESSION: * Normal left main. * The left anterior descending artery is very tortuous. Mid region of the left anterior descending artery has got underlying mild stenosis. There is a very large diagonal branch arising from the proximal region of the left anterior descending artery and the diagonal artery is extremely tortuous and is a very large artery. * The circumflex obtuse marginal artery is of moderate size, very tortuous, but does not have any stenosis. * The patient's right coronary artery is a very large supra-dominant artery. Diffuse plaque has been noted, but without evidence of any specific stenosis. It is an extremely tortuous artery. Posterior descending artery is normal. Posterolateral branch is normal. * Ejection fraction 60%. * Ascending aortography reveals mild aortic valve regurgitation. CONCLUSION: * The study is consistent with no evidence of any significant coronary artery disease stenosis. * All the coronary arteries are extremely tortuous, which is consistent with hypertensive cardiomyopathy. * Ejection fraction is 60% plus and is normal. * Ascending aortogram revealed mild aortic valve regurgitation. PLAN OF ACTION: As follows: Advised of conservative medical treatment. The patient is cardiac clear to go home. Outpatient followup. Giovani Chin MD MP/CECE/ABDIEL TID: [id number] RECEIPT: [id number]
--- NOTE | 2025-05-04 21:43 | DVHPN2 ---
Progress Note - Dictate Date Seen: May 04, 2025 Medical Necessity Reason Pt with a Central, PICC or Fol: No Subjective Patient was seen and evaluated in follow up. Patent underwent left heart cath, [place] selective left and right coronary artery angiography. The study is consistent with no evidence of any significant coronary artery disease stenosis. All the coronary arteries are extremely tortuous, which is consistent with hypertensive cardiomyopathy. Ejection fraction is 60% plus and is normal. Ascending aortogram revealed mild aortic valve regurgitation. Patient is advised of conservative medical treatment. The patient is cardiac clear to go home. Outpatient followup. Telemetry reviewed. vital signs Vital Sign Date Time Temp Pulse Resp B/P (MAP) Pulse Ox O2 Delivery O2 Flow Rate FiO2 05/04/25 13:31 97.6 60 16 94 05/04/25 12:46 136/83 (100) 05/04/25 08:00 Room Air* 0 21 Total Intake and Output 05/03/25 05/03/25 05/04/25 15:00 23:00 07:00 Intake Total 400 ml 860 ml 100 ml Balance 400 ml 860 ml 100 ml objective GENERAL: Alert and oriented x 3. No acute distress. EYES: PERRL, EOMI. Anicteric. HENT: Moist mucous membranes. LUNGS: Clear to auscultation bilaterally. CARDIOVASCULAR: Regular rate and rhythm. ABDOMEN: Soft, non-tender and non-distended. EXTREMITIES: No edema. NEUROLOGIC: No focal neurological deficits. SKIN: Warm, dry. laboratory and microbiology Laboratory Tests 05/04/25 05:04 Test 05/04/25 05:04 Range/Units Serum Glucose 127 H 74-106 mg/dL Problem List Chest pain. Echogenic cardiac structure. Hypertension. Diabetes type 2. Hyperlipidemia. Hypertensive cardiomyopathy. Assessment/Plan Continued all current supportive medical care. Eliquis. Lipitor, Metoprolol. IV antibiotics as ordered. Additional plan as per the hospital course. Dietary Evaluation Review Recommendations by RD: Dietary education by RD Comments: 1) Encourage optimal PO intake 2) Refer to outpatient RD/CDCES for weight management 3) Follow-up with cardiology 4) Continue to monitor I&O, labs, and skin integrity Expected Outcomes/Goals: 1) appetite and labs to improve 2) f/u in 3-5 days Plan discussed with: Patient BOB العراقي MD May 04, 2025 21:43
--- NOTE | 2025-05-05 12:48 | ECG ---
[facility] Test Date: 2025-04-30 Test Time: 16:41:22 Pat Name: MATTHEW JONES Department: ER Room: 0231T A Gender: F Electro Mechanical Technologist: THOMAS : 1950 Requested By: TARI COTTER Order Number: [id number] Reading MD: Manuelito Guidry Measurements Intervals [place] Rate: 63 P: 65 MD: 162 QRS: 10 QRSD: 98 T: 101 QT: 418 QTc: 428 Interpretive Statements Sinus rhythm Low voltage, precordial leads Abnormal T, consider ischemia, lateral leads Electronically Signed On 05-05-2025 22:31:38 PDT by Manuelito Guidry Please click the below link to view image of tracing.
== END 2025-05-04 15:10 | disposition home or self-care (01) | DRG 287 ==
LOC: ER 15:45 → OVERFLOW 18:59 → EAST 22:56 → TELE-EAST 05-01 19:04
PROVIDERS: ADMIT Internal Medicine; ATTEND Internal Medicine
PROC: 4A023N7 Measurement of Cardiac Sampling and Pressure, Left Heart, Percutaneous Approach (ICD-10-PCS; principal; 2025-05-04)
PROC: B211YZZ Fluoroscopy of Multiple Coronary Arteries using Other Contrast (ICD-10-PCS; 2025-05-04)
PROC: B215YZZ Fluoroscopy of Left Heart using Other Contrast (ICD-10-PCS; 2025-05-04)
PROC: B310YZZ Fluoroscopy of Thoracic Aorta using Other Contrast (ICD-10-PCS; 2025-05-04)
PROC: 03HY32Z Insertion of Monitoring Device into Upper Artery, Percutaneous Approach (ICD-10-PCS; 2025-05-04)
DX: I77.1 Stricture of artery (principal); I43 Cardiomyopathy in diseases classified elsewhere; I48.0 Paroxysmal atrial fibrillation; E03.9 Hypothyroidism, unspecified; E78.5 Hyperlipidemia, unspecified; E11.9 Type 2 diabetes mellitus without complications; I35.1 Nonrheumatic aortic (valve) insufficiency; I11.9 Hypertensive heart disease without heart failure; Z79.4 Long term (current) use of insulin; Z79.01 Long term (current) use of anticoagulants; Z79.899 Other long term (current) drug therapy; Z79.84 Long term (current) use of oral hypoglycemic drugs
CPT/HCPCS: 36415; 71045; 80053; 80061; 80307; 81001; 83036; 83735; 83880; 84439; 84443; 84484; 85025; 85610; 85730; 86850; 86900; 86901; 87040; 93005; 93306; 93458; 93567; 99152; G0378; J2250; J2470; Q9967